=== PATIENT | male | born 1970 | race Caucasian/White ===

== ENCOUNTER 2025-07-16 14:58 | Emergency (ER) | payer OTHER ==
--- NOTE | 2025-07-16 15:06 | ERPHSYRPT ---
- History of Present Illness Source: patient, family, EMS Exam Limitations: clinical condition, intoxication (I believe secondary to the fentanyl that the patient received prior to arrival by the paramedics) Timing/Duration: today Occured at: home Context: unknown Quality: aching Hip Pain Location: hip (L) Severity of Pain-Max: moderate Severity of Pain-Current: none Modifying Factors: Improves With: immobilization Symptoms prior to fall: other (Unclear at this time) Hx Tetanus, Diphtheria Vaccination/Date Given: Yes Hx Influenza Vaccination/Date Given: No Hx Pneumococcal Vaccination/Date Given: No - History of Present Illness Time Seen by Provider: 07/16/25 15:05 Physician History: This is a 54-year-old white male patient who arrives to the emergency department by the phlebotomy technologist service secondary to left hip pain. The patient contacted the phlebotomy technologist service secondary to left hip pain and the concern he may have dislocated his left hip. 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 Patient is currently sedated with fentanyl that was provided to him by the phlebotomy technologist service and he is breathing on his own, arousable but the events surrounding the possible injury are still unclear. He is comfortable at this time. Patient has a history of anxiety, panic disorder and depression (ROSLYN SCHNEIDER) Allergies/Adverse Reactions: peanut Allergy (Verified 12/28/14 14:27) Home Medications: Lisinopril 10 mg [Zestril 10 MG] 10 mg PO BID 07/16/25 [History] Travel Risk - International Travel Have you traveled outside of the country in past 3 weeks: No - Emerging Infectious Disease Are you exhibiting symptoms associated with any current EIDs: No - Review of Systems Constitutional: Lethargy Eyes: No Symptoms Ears, Nose, & Throat: No Symptoms Respiratory: No Symptoms Cardiac: No Symptoms Abdominal/Gastrointestinal: No Symptoms Genitourinary Symptoms: No Symptoms Musculoskeletal: Deformity (? Left hip), Other (Left lower extremity shortened and internally rotated) Skin: No Symptoms Neurological: Lethargy Psychological: No Symptoms Endocrine: No Symptoms Hematologic/Lymphatic: No Symptoms Immunological/Allergic: No Symptoms All Other Systems: Reviewed and Negative - Past Medical History Pertinent Past Medical History: Yes Neurological History: No Pertinent History ENT History: No Pertinent History Cardiac History: No Pertinent History Respiratory History: No Pertinent History Endocrine Medical History: No Pertinent History Musculoskeletal History: Osteoarthritis GI Medical History: Hepatitis (C) Psycho-Social History: Anxiety, Depression, Panic Disorder Other Medical History: PT UNABLE TO ANSWER d/t sedation, family not present at this x, information retrieved from medical record - Past Surgical History Past Surgical History: Yes Other Surgical History: L3-L5 FUSION - Social History Smoking Status: Current every day smoker Exposure to second hand smoke: No Drug Use: marijuana - Physical Exam General Appearance: no apparent distress, lethargy, thin Eye Exam: PERRL/EOMI, eyes nml inspection Ears, Nose, Throat Exam: normal ENT inspection, moist mucous membranes Neck Exam: normal inspection, non-tender, supple, full range of motion Respiratory Exam: normal breath sounds, lungs clear, airway intact, No chest tenderness, No respiratory distress Cardiovascular Exam: regular rate/rhythm, normal heart sounds, normal peripheral pulses Gastrointestinal Exam: soft, normal bowel sounds, tenderness Rectal Exam: not done Back Exam: normal inspection, normal range of motion, No CVA tenderness, No vertebral tenderness Extremity Exam: pelvis stable, other (Left lower extremity internally rotated and shortened compared to the right lower extremity) Neurologic Exam: cooperative, apiarist II-XII nml as tested, intoxicated appearance Skin Exam: normal color, warm, dry Lymphatic Exam: No adenopathy SpO2 Interpretation: normal - Nursing Vital Signs Nursing Vital Signs: Initial Vital Signs Temperature 98.5 F 07/16/25 15:00 Pulse Rate 79 07/16/25 15:00 Blood Pressure 134/87 07/16/25 15:00 O2 Sat by Pulse Oximetry 95 07/16/25 15:00 Pain Scale Pain Intensity 0 Procedures - Joint Reduction Time of Procedure: 17:05 Timeout: Performed Joint Reduction Site: Left, hip Conscious Sedation: No Reduction Attempts: 1 Pre-Procedure Neurovascular Exam: neurovascular intact Post Procedure Neurovascular Exam: neurovascular intact - Joint Reduction Progress: Unsuccessful joint reduction. Will have the orthopedic surgeon attempt at reduction. (ROSLYN SCHNEIDER) - Course Nursing assessment & vital signs reviewed: Yes Ordered Tests: Active Orders 24 hr Category Date Time Status Moreno [Catheter-[place] Moreno] STAT Care 07/16/25 18:27 Active IV Insertion STAT Care 07/16/25 18:14 Active Pulse Oximetry (ED) STAT Care 07/16/25 18:14 Active FEMUR Stat Exams 07/16/25 15:38 Completed HEAD WITHOUT CONTRAST [CT] Stat Exams 07/16/25 18:17 Taken PELVIS (1 OR 2 VIEWS) Stat Exams 07/16/25 15:37 Completed ACETAMINOPHEN Stat Lab 07/16/25 18:35 Completed CBC W DIFF Stat Lab 07/16/25 18:35 Completed CMP Stat Lab 07/16/25 18:35 Completed CULTURE,URINE Stat Lab 07/16/25 18:26 Received ETHYL ALCOHOL Stat Lab 07/16/25 18:35 Completed SALICYLATE Stat Lab 07/16/25 18:35 Completed UA W/RFX UR CULTURE Stat Lab 07/16/25 18:26 Completed Urine Triage Profile Stat Lab 07/16/25 18:26 Completed [place] ROUTINE RT 07/16/25 18:21 Completed Medication Summary Generic Name Dose Route Start Last Admin Trade Name Freq PRN Reason Stop Dose Admin Sodium Chloride 1,000 mls @ 100 mls/hr 07/16/25 18:15 07/16/25 20:50 Sodium Chloride 0.9% 1000 Ml IV 08/15/25 18:14 100 mls/hr .Q10H BING Infusion Sodium Chloride 1,000 mls @ 999 mls/hr 07/16/25 20:34 07/16/25 20:51 Sodium Chloride 0.9% 1000 Ml IV 07/16/25 21:34 Not Given .Q1H1M STA Discontinued Medications Generic Name Dose Route Start Last Admin Trade Name Freq PRN Reason Stop Dose Admin Etomidate 10 mg 07/16/25 17:56 07/16/25 18:02 Etomidate 20 Mg/10 Ml Amp IV 07/16/25 17:57 10 mg ONCE STA Administration Etomidate 10 mg 07/16/25 18:08 07/16/25 18:08 Etomidate 20 Mg/10 Ml Amp IV 07/16/25 18:09 10 mg 1XONLY STA Administration Lorazepam 2 mg 07/16/25 20:23 07/16/25 20:28 Lorazepam 2 Mg/1 Ml 2 Mg Vial IV 07/16/25 20:24 2 mg STAT ONE Administration Lorazepam Confirm 07/16/25 20:26 Lorazepam 20 Mg/10 Ml Mdv 2 Mg/Ml For Single Doses Administered 07/16/25 20:27 Dose 40 mg .ROUTE .STK-MED ONE Midazolam HCl 2 mg 07/16/25 20:33 07/16/25 20:51 Midazolam Hcl 5 Mg/5 Ml Vial IV 07/16/25 20:34 Not Given STAT ONE Lab/Rad Data: Laboratory Result Diagrams 07/16/25 18:35 07/16/25 18:35 Laboratory Results 07/16/25 07/16/25 07/16/25 Range/Units 18:35 18:35 18:26 WBC 9.3 H (4.23-9.07) x10^3/uL RBC 4.54 L (4.63-6.08) x10^6/uL Hgb 12.3 L (13.7-17.5) g/dL Hct 38.6 L (40.1-51.0) % MCV 85.0 (79.0-92.2) fL MCH 27.1 (25.7-32.2) pg MCHC 31.9 L (32.3-36.5) g/dL RDW 14.1 (11.6-14.4) % Plt Count 265 (163-337) x10^3/uL MPV 10.6 (9.4-12.4) fL Gran % 62.3 (34.0-67.9) % Immature Gran % (Auto) 0.3 (0.001-0.429) % Nucleat RBC Rel Count 0.0 (0.00-0.2) % Eos # (Auto) 0.48 (0.04-0.54) x10^3/uL Immature Gran # (Auto) 0.03 (0.001-0.031) x10^3u/L Absolute Lymphs (auto) 2.22 (1.32-3.57) x10^3/uL Absolute Monos (auto) 0.73 (0.30-0.82) x10^3/uL Absolute Nucleated RBC 0.00 (0.00-0.012) x10^3u/L Lymphocytes % 23.9 (21.8-53.1) % Monocytes % 7.9 (5.3-12.2) % Eosinophils % 5.2 (0.8-7.0) % Basophils % 0.4 (0.2-1.2) % Absolute Granulocytes 5.79 H (1.78-5.38) x10^3/uL Basophils # 0.04 (0.01-0.08) x10^3/uL Sodium 137 (135-145) mmol/L Potassium 3.6 (3.5-5.1) mmol/L Chloride 105 (98-107) mmol/L Carbon Dioxide 24 (22-30) mmol/L Anion Gap 10.7 (5-15) MEQ/L BUN 14 (9-20) mg/dL Creatinine 0.85 (0.66-1.25) mg/dL Estimated GFR 102.0 ML/MIN Glucose 109 H (74-106) mg/dL Calcium 8.8 (8.4-10.2) mg/dL Total Bilirubin 0.20 (0.2-1.3) mg/dL AST 49 (17-59) U/L ALT 35 (0-50) U/L Alkaline Phosphatase 107 (38-126) U/L Serum Total Protein 7.0 (6.3-8.2) g/dL Albumin 3.9 (3.5-5.0) g/dL Urine Color (Yellow) Urine Appearance (Clear) Urine pH (4.6-8.0) Ur Specific [place] (1.005-1.030) Urine Protein (Negative) Urine Glucose (UA) (Negative) mg/dL Urine Ketones (Negative) Urine Blood (Negative) Urine Nitrite (Negative) Urine Bilirubin (Negative) Urine Urobilinogen (0.2) mg/dL Ur Leukocyte Esterase (Negative) U Hyaline Cast (Auto) (0-2) /LPF Urine Microscopic RBC (0-5) /HPF Urine Microscopic WBC (0-5) /HPF Ur Epithelial Cells (None Seen) /HPF Urine Bacteria (None Seen) /HPF Urine Culture Reflexed (NO) Salicylates < 1.0 L (2-20) mg/dL Urine Opiates Level NEGATIVE (NEGATIVE) Ur Methadone NEGATIVE (NEGATIVE) Acetaminophen < 10 L (10-30) ug/ml Urine Barbiturates NEGATIVE (NEGATIVE) Ur Phencyclidine (PCP) NEGATIVE (NEGATIVE) Urine Amphetamine POSITIVE A (NEGATIVE) U Benzodiazepine Level NEGATIVE (NEGATIVE) Urine Cocaine NEGATIVE (NEGATIVE) Urine Marijuana (THC) POSITIVE A (NEGATIVE) Ethyl Alcohol < 10 (0-10) mg/dL 07/16/25 Range/Units 18:26 WBC (4.23-9.07) x10^3/uL RBC (4.63-6.08) x10^6/uL Hgb (13.7-17.5) g/dL Hct (40.1-51.0) % MCV (79.0-92.2) fL MCH (25.7-32.2) pg MCHC (32.3-36.5) g/dL RDW (11.6-14.4) % Plt Count (163-337) x10^3/uL MPV (9.4-12.4) fL Gran % (34.0-67.9) % Immature Gran % (Auto) (0.001-0.429) % Nucleat RBC Rel Count (0.00-0.2) % Eos # (Auto) (0.04-0.54) x10^3/uL Immature Gran # (Auto) (0.001-0.031) x10^3u/L Absolute Lymphs (auto) (1.32-3.57) x10^3/uL Absolute Monos (auto) (0.30-0.82) x10^3/uL Absolute Nucleated RBC (0.00-0.012) x10^3u/L Lymphocytes % (21.8-53.1) % Monocytes % (5.3-12.2) % Eosinophils % (0.8-7.0) % Basophils % (0.2-1.2) % Absolute Granulocytes (1.78-5.38) x10^3/uL Basophils # (0.01-0.08) x10^3/uL Sodium (135-145) mmol/L Potassium (3.5-5.1) mmol/L Chloride (98-107) mmol/L Carbon Dioxide (22-30) mmol/L Anion Gap (5-15) MEQ/L BUN (9-20) mg/dL Creatinine (0.66-1.25) mg/dL Estimated GFR ML/MIN Glucose (74-106) mg/dL Calcium (8.4-10.2) mg/dL Total Bilirubin (0.2-1.3) mg/dL AST (17-59) U/L ALT (0-50) U/L Alkaline Phosphatase (38-126) U/L Serum Total Protein (6.3-8.2) g/dL Albumin (3.5-5.0) g/dL Urine Color Yellow (Yellow) Urine Appearance Clear (Clear) Urine pH 5.5 (4.6-8.0) Ur Specific [place] 1.025 (1.005-1.030) Urine Protein Negative (Negative) Urine Glucose (UA) 100 A (Negative) mg/dL Urine Ketones Trace A (Negative) Urine Blood Negative (Negative) Urine Nitrite Negative (Negative) Urine Bilirubin Negative (Negative) Urine Urobilinogen 1.0 A (0.2) mg/dL Ur Leukocyte Esterase Negative (Negative) U Hyaline Cast (Auto) NONE SEEN (0-2) /LPF Urine Microscopic RBC 0-2 (0-5) /HPF Urine Microscopic WBC 0-2 (0-5) /HPF Ur Epithelial Cells None Seen (None Seen) /HPF Urine Bacteria None Seen (None Seen) /HPF Urine Culture Reflexed NO (NO) Salicylates (2-20) mg/dL Urine Opiates Level (NEGATIVE) Ur Methadone (NEGATIVE) Acetaminophen (10-30) ug/ml Urine Barbiturates (NEGATIVE) Ur Phencyclidine (PCP) (NEGATIVE) Urine Amphetamine (NEGATIVE) U Benzodiazepine Level (NEGATIVE) Urine Cocaine (NEGATIVE) Urine Marijuana (THC) (NEGATIVE) Ethyl Alcohol (0-10) mg/dL - Progress Progress Note: 07/16/25 15:49 My medical decision making and assignment of low to moderate complexity of this patient's medical issue today is based on review of the patient's past medical history, review the patient's medication list, reviewed patient drug allergy list, history of present illness and physical findings on examination. The workup in this patient includes x-ray of the patient's pelvis, left hip and left femur. Differential diagnosis includes was not limited to left hip anterior dislocation, left hip posterior dislocation, left hip fracture, left femur fracture, left femur dislocation 07/16/25 17:09 I interpreted the patient's preliminary x-ray report of the pelvis and left femur: The preliminary report of the pelvis shows left artificial hip posterior dislocation. No other acute findings. The plain report of the left femur shows left artificial hip posterior dislocation with no other acute findings. I did speak with orthopedic surgeon, Dr. Valdivia. He reviewed the films sent to him and agrees that there is a dislocation of the artificial hip on the left side and likely posterior. The patient was very sedated and I did attempt 1 time to reduce the dislocation. However, I will have the orthopedic surgeon come in and reduce the left artificial hip posterior dislocation. 07/16/25 18:14 Dr. Valdivia, orthopedic surgeon on-call came into the emergency department to attempt to reduce the patient's left hip dislocation. The conscious sedation attempt was not successful. See his note for the procedure. 07/16/25 18:58 Since the patient has maintained lethargy and sedation, and the patient is going to need to go to the operating room for reduction, we will CT his head and obtain lab work that likely, anesthesia will need/require I am transferring care of this patient to Dr. Haney at shift change. He will follow-up on the studies and make final disposition (ROSLYN SCHNEIDER) Case discussed with Dr. Ewing hospitalist at [facility] who accepts transfer at 9:[address] Reed Awad our orthopedic doctor attempted a hip reduction. The hip reduction was unsuccessful. It was determined that patient requires reduction in the operating room. He advised that we transfer patient to [facility] for surgical reduction of the left hip. Plan of care discussed with patient. He agrees to transfer to [facility] for further evaluation and treatment. Portions of this note were created with voice recognition technology. There may be grammatical, spelling, punctuation or sound alike errors Patient's involved extremities neurovasc intact distally compartments are soft cap refill less than 2 seconds. Patient resting comfortably. He voices no other complaints or concerns at this time. 07/16/25 21:30 (AC HANEY) - Departure Departure Disposition: Observation Critical Care Time: No - Departure Clinical Impression: Lethargy, Dislocation of left hip Condition: Fair Referrals: MEEK DAMON MD [Primary Care Provider, INTERNAL MEDICINE] - Follow up/PCP as directed
[2025-07-16 15:08] VITALS: TEMP 98.5
--- NOTE | 2025-07-16 16:46 | XRAY ---
Indication: Left hip pain. Comparison: None 2 view left hip demonstrates total hip arthroplasty with dislocation femoral prosthesis. Elsewhere osteopenia, mild lower lumbar degenerative spondylosis, and left inferior ischial tuberosity heterotopic ossifications. No other bony, articular, or soft tissue abnormalities.
--- NOTE | 2025-07-16 16:46 | XRAY ---
Indication: Left hip pain. Comparison: None AP pelvis demonstrates bilateral total hip arthroplasty with dislocation left femoral prosthesis. Elsewhere osteopenia, mild lower lumbar degenerative spondylosis, and left inferior ischial tuberosity heterotopic ossifications. No other bony, articular, or soft tissue abnormalities.
[2025-07-16] MEDS: Amidate 20 MG/10 ML IV STA ×2 (18:02→18:08)
--- NOTE | 2025-07-16 18:37 | PCM.CONS ---
History of Present Illness - Consult Date of Consultation Date: 07/16/25 Reason for Consult: left prosthetic hip dislocation Consulting Provider: KELLEN JOHNSON MD - [facility] History of Present Illness: is a 54 year old male with h/o left MAHAMED in the past. He is unable to give a good history. He apparently was foung on the floor early this morning complaining of left hip pain. He was brought to the ER where x-rays revealed a left MAHAMED dislocation. - Review of Systems Musculoskeletal: Deformity, Injury, Joint Pain Medications & Allergies Home Medications: Home Medication List Lisinopril 10 mg [Zestril 10 MG] 10 mg PO BID 07/16/25 [History Confirmed 07/16/25] Allergies/Adverse Reactions: Allergies Allergy/AdvReac Type Severity Reaction Status Date / Time peanut Allergy Verified 12/28/14 14:27 - Past Medical History Past Medical History: Yes Neurological History: No Pertinent History ENT History: No Pertinent History Cardiac History: No Pertinent History Respiratory History: No Pertinent History Endocrine Medical History: No Pertinent History Musculoskelatal History: Osteoarthritis GI Medical History: Hepatitis (C) Pyscho-Social History: Anxiety, Depression, Panic Disorder Comment: PT UNABLE TO ANSWER d/t sedation, family not present at this x, information retrieved from medical record - Past Surgical History Past Surgical History: Yes Other Surgical History: L3-L5 FUSION - Social History Smoking Status: Current every day smoker Exposure to second hand smoke: No Alcohol: Weekly Drug Use: marijuana - Social Determinants of Health Will the patient participate in the screening: Yes Do you worry about a steady place to live?: No Do you have any problems with any of the following?: No known problems In the past 12 months,have you had to go without utilities?: No Have you or anyone in your house had to go without enough: No Transportation Issues: No Has anyone in your support network made you feel unsafe?: No - Nursing Vital Signs Nursing Vital Signs: Vital Signs - 24 hr Temp Pulse Resp BP BP Pulse Ox 07/16/25 18:28 100 07/16/25 18:22 177/112 100 07/16/25 18:16 190/113 99 07/16/25 18:13 186/106 07/16/25 18:11 174/122 07/16/25 18:06 83 35 H 169/146 07/16/25 18:04 173/112 99 07/16/25 18:03 100 07/16/25 18:00 98 07/16/25 17:59 97 07/16/25 17:00 86 L 07/16/25 16:50 95 07/16/25 16:40 96 07/16/25 16:30 94 L 07/16/25 16:22 98 07/16/25 15:30 138/95 07/16/25 15:01 134/87 97 07/16/25 15:00 98.5 F 79 134/87 95 - Physical Exam SpO2: 100 - Lower Extremity Hips: left: deformity (internal hip rotation, shortening), limited range of motion (hip), pain (hip) - Narrative Narrative Physical Exam: Ortho Physical Exam Assessment/Plan (1) Dislocation of internal left hip prosthesis, initial encounter Current Visit: Yes Status: Acute Assessment & Plan: We attempted closed reduction of the left MAHAMED under conscious sedation in the ER without success. Plan on going to the OR for deeper sedation and another attempt at closed reduction. Code(s): T84.021A - DISLOCATION OF INTERNAL LEFT HIP PROSTHESIS, INIT ENCNTR Results - Radiology Impressions Radiology Exams & Impressions: Radiology Procedures Category Date Time Status FEMUR Stat Exams 07/16/25 15:38 Completed HEAD WITHOUT CONTRAST [CT] Stat Exams 07/16/25 18:17 Ordered PELVIS (1 OR 2 VIEWS) Stat Exams 07/16/25 15:37 Completed
[2025-07-16 18:40] LABS: BASOPHIL % 0.4 % (0.2-1.2); Basophil (Absolute #) 0.04 x10^3/uL (0.01-0.08); Eosinophil (Absolute #) 0.48 x10^3/uL (0.04-0.54); Hematocrit 38.6 % (40.1-51.0); Hemoglobin 12.3 g/dL (13.7-17.5); IMMATURE GRAN # 0.03 x10^3u/L (0.001-0.031); IMMATURE GRAN % 0.3 % (0.001-0.429); Lymphocyte (Absolute #) 2.22 x10^3/uL (1.32-3.57); Mean Corpuscular Hemoglobin 27.1 pg (25.7-32.2); Mean Corpuscular Hgb Concent. 31.9 g/dL (32.3-36.5); Monocyte (Absolute #) 0.73 x10^3/uL (0.30-0.82); NUCLEATED RBC # 0.00 x10^3u/L (0.00-0.012); NUCLEATED RBC % 0.0 % (0.00-0.2); Platelet Count 265 x10^3/uL (163-337); Red Blood Count 4.54 x10^6/uL (4.63-6.08); White Blood Count 9.3 x10^3/uL (4.23-9.07)
[2025-07-16 18:55] LABS: Glucose, Urine 100 mg/dL (Negative); Protein,Urine Dip Negative (Negative); RBC 0-2 /HPF (0-5); WBC 0-2 /HPF (0-5)
[2025-07-16 18:56] LABS: Calcium 8.8 mg/dL (8.4-10.2); Carbon Dioxide 24 mmol/L (22-30); Creatinine 1 0.85 mg/dL (0.66-1.25); EST GLOMERULAR FILTRATION RATE 102.0 ML/MIN; ETHYL ALCOHOL < 10 mg/dL (0-10); Glucose 109 mg/dL (74-106); Potassium 3.6 mmol/L (3.5-5.1); SGOT/AST 49 U/L (17-59); SGPT/ALT 35 U/L (0-50); Total Protein 7.0 g/dL (6.3-8.2)
[2025-07-16 19:08] LABS: Barbiturate,Urine NEGATIVE (NEGATIVE); Benzodiazepine,Urine NEGATIVE (NEGATIVE); Cocaine,Urine NEGATIVE (NEGATIVE); Methadone,Urine NEGATIVE (NEGATIVE); Opiate,Urine NEGATIVE (NEGATIVE); PCP,Urine NEGATIVE (NEGATIVE); THC,Urine POSITIVE (NEGATIVE)
[2025-07-16 19:34] LABS: Amphetamine,Urine POSITIVE (NEGATIVE)
[2025-07-16] MEDS ORDERED: ATIVAN 2 MG/ML MDV FOR SINGLE DOSES ONE (20:26)
[2025-07-16] MEDS: Ativan 2 MG/1 ML VIAL IV ONE (20:28)
[2025-07-16] MEDS: VERSED 5 MG/5 ML IV ONE (20:51)
[2025-07-17 01:18] VITALS: RESP 18
[2025-07-17 01:48] VITALS: BP 151/100; PULSE 73; O2SAT 98
--- NOTE | 2025-07-17 08:44 | XRAY ---
Indication: Lethargy. Multiple contiguous axial images obtained through the head without contrast. Comparison: July 12, 2013 Age-appropriate global atrophy and minimal periventricular degenerative microischemia. No acute intracranial hemorrhage, abnormal extra-axial fluid collection, or mass effect. 4th ventricle is midline without hydrocephalus. Bony calvarium intact. There is moderate mucosal thickening both ethmoid/maxillary and lesser degree left sphenoid sinuses with fluid leveling. Mastoid air cells are clear. Impression: Nonacute senile brain. Incidental pansinusitis.
== END 2025-07-17 01:39 | disposition short-term general hospital (02) ==
LOC: ED 14:58
DX: T84.021A Dislocation of internal left hip prosthesis, initial encounter (principal); R53.83 Other fatigue; Z72.0 Tobacco use